=== PATIENT | female | born 1990 | race Two or more races ===

== ENCOUNTER 2016-12-25 19:44 | Emergency (ER) | payer MEDICAID, OTHER ==
--- NOTE | 2016-12-25 19:58 | EDPHY ---
H & P Smoking Status: Never smoked Time Seen by Provider: 12/25/16 19:46 HPI/ROS: CHIEF COMPLAINT: Mental health hold HISTORY OF PRESENT ILLNESS: Patient recently found out she is . She went to [facility] for evaluation and they put her on a hold for depression and suicidal ideation with a plan to drive off the road. She has a history of depression but has not been on medications for several years. Patient admits to suicidal thoughts but currently denies a plan she says the "suicidal thoughts comfort me" and she would actually kill herself. REVIEW OF SYSTEMS: Eye: no change in vision ENT: no sore throat Cardiac: no chest pain or syncope Pulmonary: no cough or SOB Abdomen: no vomiting, diarrhea, abdominal pain Musculoskeletal: no back pain Skin: no rash Neuro: no headache Constitutional: no fever : no urinary symptoms. She has a little bit of itchy vaginal discharge over the past week which started when she was being treated for UTI by antibiotics. No further dysuria. She thinks she might be had a little bit of bloody is spotting this week. A little bit of pelvic cramping. A comprehensive 10 point review of systems is otherwise negative aside from elements mentioned in the history of present illness. PAST MEDICAL HISTORY: Depression not currently on medications Social history: Denies alcohol or drugs today. General Appearance: Alert and conversant, cooperative. Eyes: No scleral icterus. ENT, Mouth: Normal mucous membranes. Respiratory: Normal respiratory effort, breath sounds equal, lungs are clear to auscultation. Cardiovascular: Regular rate and rhythm. Gastrointestinal: Abdomen is soft and non tender. No lower abdominal tenderness. Neurological: Alert and oriented x3. Normally conversant. Face symmetric, normal movement and sensation in all extremities. Skin: Warm and dry, no rashes. Musculoskeletal: No peripheral edema and no joint swelling. No CVA tenderness. Psychiatric: Pressured speech. Depression as outlined in the HPI. Emergency Department course/MDM: Plan for CBC chemistries and urinalysis. test. She arrives on a mental health hold from the crisis Center. 2124: Positive test. Rh an ultrasound ordered. Medically cleared for psychiatric evaluation. O positive blood type, no Rhogam. She is started on Macrobid 100 mg orally q.12 hours for UTI. She does not have signs or symptoms of pyelonephritis. Ultrasound reviewed, I think ectopic is unlikely. More likely early . Signed out to Theo at 2300 with psych evaluation pending. (Kevin Carey) Constitutional: Initial Vital Signs Temperature (C) 37.0 C 12/25/16 19:45 Heart Rate 112 H 12/25/16 19:45 Respiratory Rate 18 12/25/16 19:45 Blood Pressure 136/90 H 12/25/16 19:45 O2 Sat (%) 98 12/25/16 19:45 O2 Delivery Mode Room Air Allergies/Adverse Reactions: No Known Allergies Allergy (Unverified 12/25/16 20:04) Home Medications: Medication Instructions Recorded Nitrofurantoin Macrobid [Macrobid] 100 mg PO Q12 #14 cap 12/25/16 Medical Decision Making - Diagnostics Imaging Results: Imaging Impressions Obstetrics Ultrasound 12/25/16 21:15 Impression: 1. Intrauterine gestational sac identified with a yolk sac only. No pole. 2. EGA is approximately 5 weeks 4 days based on mean gestational sac diameter. 3. Probable very early intrauterine . 4. No definite adnexal masses or ovarian torsion. No significant free fluid. 5. Recommend followup anatomy scan between 19 and 20 weeks gestation. Findings and recommendations discussed with Emergency Department physician, KEVIN CAREY at 22:14 hour, 12/25/2016. Final report concurs with initial preliminary interpretation. Ultrasound per Marcio Jewell at 10:10 p.m. shows 5 week /4 day yolk sac but no heartbeat seen, no ultrasonographic evidence of ectopic. (Kevin Carey) ED Course/Re-evaluation: 0246AM: This patient has been accepted at [facility]. Emtala form filled out. Patient will be approprately transferred. (Cristiano Landis) Differential Diagnosis: Differential diagnosis considered for depression including functional and major depression, situational depression, medication side effect, drugs and alcohol abuse. (Kevin Carey) - Data Points Laboratory Results: Laboratory Results 12/25/16 19:50 12/25/16 19:50 12/25/16 12/25/16 12/25/16 21:25 20:00 19:50 WBC RBC Hgb Hct MCV MCH MCHC RDW Plt Count MPV Neut % (Auto) Lymph % (Auto) [place] % (Auto) Eos % (Auto) Baso % (Auto) Nucleat RBC Rel Count Absolute Neuts (auto) Absolute Lymphs (auto) Absolute Monos (auto) Absolute Eos (auto) Absolute Basos (auto) Absolute Nucleated RBC Immature Gran % Immature Gran # Sodium Potassium Chloride Carbon Dioxide Anion Gap BUN Creatinine Estimated GFR Glucose Calcium Beta HCG, Qual Beta HCG, Quant 8110.20 mIU/mL H mIU/mL (0-4.83) Urine RBC 15-25 /hpf H /hpf (0-3) Urine WBC 50-182 /hpf H /hpf (0-3) Ur Epithelial Cells TRACE /lpf /lpf (NONE-1+) Urine Bacteria 1+ /hpf H /hpf (NONE SEEN) Urine Mucus TRACE /lpf /lpf (NONE-1+) Salicylates Urine Opiates Screen NEGATIVE (NEGATIVE) Acetaminophen Urine Barbiturates NEGATIVE (NEGATIVE) Ur Phencyclidine Scrn NEGATIVE (NEGATIVE) Ur Amphetamine Screen NEGATIVE (NEGATIVE) U Benzodiazepines Scrn NEGATIVE (NEGATIVE) Urine Cocaine Screen NEGATIVE (NEGATIVE) U Marijuana (THC) Screen NON-NEGATIVE H (NEGATIVE) Ethyl Alcohol Patient ABO/Rh O POSITIVE 12/25/16 12/25/16 12/25/16 19:50 19:50 19:50 WBC 15.07 10^3/uL H 10^3/uL (3.80-9.50) RBC 4.87 10^6/uL 10^6/uL (4.18-5.33) Hgb 14.3 g/dL g/dL (12.6-16.3) Hct 42.0 % % (38.0-47.0) MCV 86.2 fL fL (81.5-99.8) MCH 29.4 pg pg (27.9-34.1) MCHC 34.0 g/dL g/dL (32.4-36.7) RDW 14.0 % % (11.5-15.2) Plt Count 417 10^3/uL H 10^3/uL (150-400) MPV 9.3 fL fL (8.7-11.7) Neut % (Auto) 69.1 % % (39.3-74.2) Lymph % (Auto) 25.1 % % (15.0-45.0) [place] % (Auto) 4.6 % % (4.5-13.0) Eos % (Auto) 0.5 % L % (0.6-7.6) Baso % (Auto) 0.2 % L % (0.3-1.7) Nucleat RBC Rel Count 0.0 % % (0.0-0.2) Absolute Neuts (auto) 10.40 10^3/uL H 10^3/uL (1.70-6.50) Absolute Lymphs (auto) 3.79 10^3/uL H 10^3/uL (1.00-3.00) Absolute Monos (auto) 0.70 10^3/uL 10^3/uL (0.30-0.80) Absolute Eos (auto) 0.08 10^3/uL 10^3/uL (0.03-0.40) Absolute Basos (auto) 0.03 10^3/uL 10^3/uL (0.02-0.10) Absolute Nucleated RBC 0.00 10^3/uL 10^3/uL (0-0.01) Immature Gran % 0.5 % % (0.0-1.1) Immature Gran # 0.07 10^3/uL 10^3/uL (0.00-0.10) Sodium 136 mEq/L mEq/L (134-144) Potassium 3.5 mEq/L mEq/L (3.5-5.2) Chloride 103 mEq/L mEq/L (97-110) Carbon Dioxide 22 mEq/l mEq/l (22-31) Anion Gap 11 mEq/L mEq/L (8-16) BUN 7 mg/dL mg/dL (7-23) Creatinine 0.8 mg/dL mg/dL (0.6-1.0) Estimated GFR > 60 Glucose 108 mg/dL H mg/dL (70-100) Calcium 9.8 mg/dL mg/dL (8.5-10.4) Beta HCG, Qual POSITIVE Beta HCG, Quant Urine RBC Urine WBC Ur Epithelial Cells Urine Bacteria Urine Mucus Salicylates < 1.0 mg/dL L mg/dL (2.0-20.0) Urine Opiates Screen Acetaminophen < 10 mcg/mL L mcg/mL (10.0-30.0) Urine Barbiturates Ur Phencyclidine Scrn Ur Amphetamine Screen U Benzodiazepines Scrn Urine Cocaine Screen U Marijuana (THC) Screen Ethyl Alcohol < 10 mg/dL mg/dL (0-10) Patient ABO/Rh Departure - Departure Disposition: Other Psych, Not Emily Clinical Impression: Suicidal ideation Qualifiers: Weeks of gestation: less than 8 weeks Qualified Code(s): Z3A.01 - Less than 8 weeks gestation of UTI (urinary tract infection) Qualifiers: Urinary tract infection type: acute cystitis Hematuria presence: without hematuria Qualified Code(s): N30.00 - Acute cystitis without hematuria Condition: Fair Instructions: Threatened Miscarriage (ED), Urinary Tract Infection in Women (ED ) Additional Instructions: Return immediately for increased vaginal bleeding or abdominal pain, dizzy or lightheaded. Call in 48 hours for results of urine culture; [phone]. Referrals: Gemini Fair MD [Medical Doctor] - 12/27/16 (You need to follow up in 2 days with this OBGYN for a repeat quantitative test.) Prescriptions: Nitrofurantoin Macrobid [Macrobid] 100 mg PO Q12 #14 cap
[2016-12-25 20:03] LABS: % IMMATURE GRANULYOCYTES 0.5 % (0.0-1.1); ABSOLUTE IMMATURE GRANULOCYTES 0.07 10^3/uL (0.00-0.10); ADD DIFF? NO; ADD MORPH? NO; ADD SCAN? NO; ATYPICAL LYMPHOCYTE FLAG 10 (0-99); FRAGMENT RBC FLAG 0 (0-99); HEMOGLOBIN 14.3 g/dL (12.6-16.3); LEFT SHIFT FLG 0 (0-99); LIPEMIA HEMOLYSIS FLAG 90 (0-99); MEAN CELL HEMOGLOBIN 29.4 pg (27.9-34.1); MEAN CELL VOLUME 86.2 fL (81.5-99.8); MEAN PLATELET VOLUME 9.3 fL (8.7-11.7); PLATELET CLUMPS FLAG 60 (0-99); PLATELET COUNT 417 10^3/uL (150-400); RED BLOOD CELL COUNT 4.87 10^6/uL (4.18-5.33)
[2016-12-25 20:23] LABS: BACTERIA 1+ /hpf (NONE SEEN); MUCUS TRACE /lpf (NONE-1+); RBC,URINE 15-25 /hpf (0-3); WBC,URINE 50-182 /hpf (0-3)
[2016-12-25 20:47] LABS: ANION GAP 11 mEq/L (8-16); CALCIUM 9.8 mg/dL (8.5-10.4); CARBON DIOXIDE 22 mEq/l (22-31); CHLORIDE 103 mEq/L (97-110); CREATININE 0.8 mg/dL (0.6-1.0); ETHANOL SERUM < 10 mg/dL (0-10); GLOMERULAR FILTRATION RATE > 60; GLUCOSE 108 mg/dL (70-100); POTASSIUM 3.5 mEq/L (3.5-5.2); SALICYLATE < 1.0 mg/dL (2.0-20.0); SODIUM 136 mEq/L (134-144)
[2016-12-25] MEDS ORDERED: NITROFURANTOIN MACROBID 100 MG CAP PO SCH (21:00)
[2016-12-26 04:04] VITALS: BP 143/71; PULSE 77; RESP 16; TEMP 98.1; O2SAT 97
== END 2016-12-26 04:04 ==
LOC: EDUNIT#
DX: O99.89 Other specified diseases and conditions complicating pregnancy, childbirth and the puerperium (principal); R45.851 Suicidal ideations; O23.11 Infections of bladder in pregnancy, first trimester; B96.89 Other specified bacterial agents as the cause of diseases classified elsewhere; Z3A.01 Less than 8 weeks gestation of pregnancy
CPT/HCPCS: 80305; G0480